=== PATIENT | female | born 1980 | race Caucasian/White ===

== ENCOUNTER → 2017-08-13 | Outpatient (CLI) | payer OTHER ==
[2017-08-09 14:59] VITALS: BMI 26.8
[2017-08-13 13:22] VITALS: BP 119/78; PULSE 110; RESP 16
--- NOTE | 2017-08-14 06:07 | P.CONS ---
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, and she continued to take care of her disabled son,, she tried multiple pain medications and she had side effects or no benefit from it Past Medical History Past Medical History: Fibromyalgia, GERD/Reflux, Hypertension Additional Past Medical History / Comment(s): BACK PAIN History of Any Multi-Drug Resistant Organisms: None Reported Past Surgical History: Section Past Anesthesia/Blood Transfusion Reactions: Motion Sickness Additional Past Anesthesia/Blood Transfusion Reaction / Comm: "TAKES LONGER TO WAKE UP " Smoking Status: Current some day smoker - Past Family History Mother Family Medical History: No Reported History Medications and Allergies Home Medications Medication Instructions Recorded Confirmed Type ALPRAZolam [Xanax] 1 mg PO Q8HR PRN 08/09/17 08/13/17 History Baclofen [Lioresal] 20 mg PO TID 08/09/17 08/13/17 History Ondansetron HCl [Zofran] 8 mg PO DAILY 08/09/17 08/13/17 History Ranitidine HCl [Zantac] 150 mg PO BID PRN 08/09/17 08/13/17 History busPIRone HCL 15 mg PO TID 08/09/17 08/13/17 History Hydrocodone/Acetaminophen [Mccomb 1 tab PO DIRECTED 08/13/17 08/13/17 History 7.5-325] Ibuprofen [Motrin] 800 mg PO TID PRN 08/13/17 08/13/17 History Milnacipran HCl [Savella] 12.5 mg PO DIRECTED 08/13/17 08/13/17 History Allergies Allergy/AdvReac Type Severity Reaction Status Date / Time duloxetine [From Cymbalta] Allergy SEVERE Verified 08/13/17 12:51 DEPRESSION lorazepam [From Ativan] Allergy ANXIOUS Verified 08/13/17 12:51 acetaminophen AdvReac "MAKES MY Verified 08/13/17 13:43 [From Tylenol-Codeine #3] FACE GO NUMB" codeine AdvReac "MAKES MY Verified 08/13/17 13:43 [From Tylenol-Codeine #3] FACE GO NUMB" cyclobenzaprine AdvReac DID NOT Verified 08/13/17 12:51 [From Flexeril] WORK" Physical Exam Vitals: Vital Signs Pulse Resp BP Pulse Ox 08/13/17 13:10 110 H 16 119/78 97 Social history : smoker , NO ETOH , NO Illegal drugs Review of Systems : 1- Constitutional : no chills , no fever , no night sweats , 2- Ears : no ear discharge , no change in hearing 3-Nose, Mouth ,Throat ; no bleeding gums, no sore throat , no epistaxis , 4-Cardiovascular : Denies chest pain, , no orthopnea , no palpitation 5-Respiratory : Denies cough , no dyspnea , no hemoptysis 6-Gastrointestinal :, no change in bowel habits , no coffee- ground emesis . 7-Genitourinary : No hematuria , no discharge , no incontinence, 8-Musculoskeletal : gait dysfunction , report low back pain , report neck pain and right shoulder pain, right hip pain , 9- Neurological : no ataxia , no tremor , no sezure , 10-Psychatric , no suicidal ideation no hallucination 11- Endocrine : no cold intolerence , no polyuria , no polydypsia , 12-Hematologic : no easy bleeding , no easy brusing , 13-Allergic / immunology : no angioedema , no wheezing ,no allergic rhinitis 14-Integumentary : no brttle nails , no change hair / nails , no foot/leg ulcers . Physical Examinations : 1-Constitutional : Cooperative , not in acute distress . 2-HEENT : nech ; supple , no Lymphadenopathy , no Thyromegaly , :eyes , no icterus, no photophobia . ENT : , normal oropharynx , no Thrush 3- Respiratory : Chest clear to auscultations Bilaterally , no wheezing . 4- Cardiovascular : regular rate and rhythem , S1 , S2 , no S3 , no S4. 5- Gastrointestinal: abdomen soft no tenderness , no organomegally . 6- Genitourinary : Defferred . 7-Integumentary : No cellulitis , no ulcers , normal skin turgor , no cyanotic . 8- neurologic : Cranial nerve II to XII intact , no focal neurological deffecit 9-psychatric : alert , oriented X 3 , appropriate affect , intact judgment and insight . 10-Lymphatic : no Lymphadenopathy. 11- musculoskeltal: normal gait Cervical Spine motor stregnth in the deltoid and biceps, normal right side , normal Left side, decreased ability to rotate and abduct the right shoulder motor stregnth biceps and the wrist extensors normal right side ,normal left side . motor stregnth in the triceps muscle . normal Right side , normal Left side deep tendon reflexes normal at the biceps , normal at Brachioradialis , normal at triceps. positive cervical facet loading test . Multiple trigger point identified in the cervical paravertebral muscles and upper thoracic paravertebral muscles Lumber spine moter stegnth lower extremities ,thigh and legs 5/5 Right side , 5/5 Left side deep tendon reflexes : normal Knee Jerk , normal ankle Jerk positive lumber facet Loading Test Range of motion of the lumbar spine Flexion 30 degrees, extension 10 degrees strait leg raising test negative bilaterally Fabere test negative bilaterally Sever tenderness over the right trochanteric bursa . Results Labs: MRI of the lumbar spine done 03/21/2013 that showed L3 4 and L4 5 and L5-S1 moderate facet arthropathy Assessment and Plan Plan: Assessment and plan= 1-fibromyalgia 2-right shoulder arthralgia. 3-lumbar facet arthropathy. 4-right trochanteric bursitis. Patient could benefit from baclofen 10 mg 3 times a day, she could benefit from Motrin 800 mg 3 times a day, also patient could benefit from Savella 12.5 mg increased gradually to 2 tablets twice a day , Also patient given him one prescription for Mccomb 7.5/325 will be tapered over one month , and it will be discontinue after that. Patient also given referral to orthopedic surgeon to address the right shoulder pain (rotator cuff tear ) The future we can address the low back pain by doing medial branch block and possible radiofrequency and also patient could benefit from right side trochanteric bursa steroid injection Time with Patient: Greater than 30
== END | disposition home or self-care (01) ==
LOC: PNWHC3 12:35
PROVIDERS: ATTEND Specialist
DX: M79.7 Fibromyalgia (principal); M25.511 Pain in right shoulder; M46.86 Other specified inflammatory spondylopathies, lumbar region; M70.61 Trochanteric bursitis, right hip; F17.200 Nicotine dependence, unspecified, uncomplicated; Z79.891 Long term (current) use of opiate analgesic; Z79.899 Other long term (current) drug therapy; Z79.1 Long term (current) use of non-steroidal anti-inflammatories (NSAID); Z88.8 Allergy status to other drugs, medicaments and biological substances; Z88.6 Allergy status to analgesic agent; Z88.5 Allergy status to narcotic agent
CPT/HCPCS: 99201